=== PATIENT | male | born 1975 | race Caucasian/White ===

== ENCOUNTER 2018-04-08 18:46 | Emergency (ER) | payer BC, OTHER ==
[2018-04-08] MEDS ORDERED: Adacel Vial IM ONE ×2 (19:20→19:43)
--- NOTE | 2018-04-08 19:44 | ERPHSYRPT ---
- History of Present Illness Time Seen by Provider: 04/08/18 19:13 Source: patient Exam Limitations: no limitations Patient Subjective Stated Complaint: Patient states a nail went through his right hand. Patient states pain at 03/08 Triage Nursing Assessment: Wound noted to right wrist and right hand. Patient states pain is a 6/10 Physician History: Pt states, he fell, sustained puncture wounds on his right palm at home, because he fell on a board with nails in it. He denies other injury, or complaints, but he started feeling mid sternal, not radiating chest pain on his way here, lasting few seconds. He denies shortness of breath, nausea, vomiting, diaphoresis, dizziness, other complaints, and it completely resolved. He denies current complaints, besides mild pain in the right hand puncture wounds. He states, his tetanus is not up to date. Occurred: just prior to arrival Method of Injury: fell Quality: constant Severity of Pain-Max: mild Severity of Pain-Current: mild Extremities Pain Location: hand: right Modifying Factors: Improves With: nothing Associated Symptoms: chest pain (resolved) Allergies/Adverse Reactions: No Known Drug Allergies Allergy (Unverified 05/06/15 16:06) Hx Tetanus, Diphtheria Vaccination/Date Given: No Hx Influenza Vaccination/Date Given: No Hx Pneumococcal Vaccination/Date Given: No - Review of Systems Constitutional: No Symptoms Musculoskeletal: Other (puncture wounds ti right palm) All Other Systems: Reviewed and Negative - Past Medical History Pertinent Past Medical History: Yes Neurological History: No Pertinent History ENT History: No Pertinent History Cardiac History: No Pertinent History Respiratory History: No Pertinent History Endocrine Medical History: No Pertinent History Musculoskeletal History: No Pertinent History GI Medical History: No Pertinent History History: No Pertinent History Psycho-Social History: No Pertinent History Male Reproductive Disorders: No Pertinent History - Past Surgical History Past Surgical History: No Neuro Surgical History: No Pertinent History Cardiac: No Pertinent History Respiratory: No Pertinent History Gastrointestinal: No Pertinent History Genitourinary: No Pertinent History Musculoskeletal: No Pertinent History Male Surgical History: No Pertinent History - Social History Smoking Status: Current every day smoker How long have you smoked: 13 Exposure to second hand smoke: Yes Drug Use: none Patient Lives Alone: No - Nursing Vital Signs Nursing Vital Signs: Initial Vital Signs Temperature 99.9 F 04/08/18 18:56 Pulse Rate 84 04/08/18 18:56 Respiratory Rate 18 04/08/18 18:56 Blood Pressure 129/85 04/08/18 18:56 O2 Sat by Pulse Oximetry 96 04/08/18 18:56 Pain Scale Pain Intensity 6 - Physical Exam General Appearance: no apparent distress Eyes, Ears, Nose, Throat Exam: normal ENT inspection Neck Exam: normal inspection, non-tender, supple Cardiovascular/Respiratory Exam: chest non-tender, normal breath sounds, regular rate/rhythm, heart sounds normal, no ecchymosis, no JVD, no respiratory distress Abdominal Exam: non-tender, soft Back Exam: normal inspection, No CVA tenderness Shoulder Exam: normal inspection Hand Exam: laceration (2 punxture wounds: #1 in the base of the palm, just distal from the mid wrist, #2 is on the base of the hypothenar, no bleeding, or large hematoma, no swelling, deformity, good distal capillary refills, no sign of tendon or neurovascular injury.) Neuro/Tendon Exam: normal sensation, normal motor functions Mental Status Exam: alert, oriented x 3, cooperative Skin Exam: normal color, warm, dry SpO2 Interpretation: normal SpO2: 96 Oxygen Delivery: Room Air - Course Nursing assessment & vital signs reviewed: Yes EKG Interpreted by Me: RATE (81/min), NORMAL AXIS, NORMAL INTERVALS, NORMAL ST-T - Radiology Exams Right Hand X-ray Interpretation: Interpreted by me, Negative Chest X-ray Interpretation: Interpreted by me, Negative Ordered Tests: Active Orders 24 hr Category Date Time Status Postal Inspector STAT Care 04/08/18 19:19 Active EKG-ER Only STAT Care 04/08/18 19:18 Active IV Insertion STAT Care 04/08/18 19:18 Active Oxygen-ED Only NASAL CANNULA 2 lpm Care 04/08/18 19:18 Active Wound Care STAT Care 04/08/18 19:20 Active CHEST 1 VIEW (PORTABLE) Stat Exams 04/08/18 19:19 Taken HAND (MINIMUM 3 VIEWS) Stat Exams 04/08/18 19:21 Taken CBC W DIFF Stat Lab 04/08/18 20:00 Completed CK-Creatinine Phosphokinase Stat Lab 04/08/18 20:00 Completed CMP Stat Lab 04/08/18 20:00 Completed CULTURE,URINE Stat Lab 04/08/18 19:50 Received NT PRO BNP Stat Lab 04/08/18 20:00 Completed TROPONIN Q3H Lab 04/08/18 20:00 Completed TROPONIN Q3H Lab 04/08/18 22:30 Ordered UA W/ MICROSCOPIC Stat Lab 04/08/18 19:50 Completed Urine Triage Profile Stat Lab 04/08/18 Completed Medication Summary Discontinued Medications Generic Name Dose Route Start Last Admin Trade Name Freq PRN Reason Stop Dose Admin Diphtheria/Tetanus/Acell Pertussis 0.5 ml 04/08/18 19:20 04/08/18 19:45 Adacel Vial IM 04/08/18 19:21 0.5 ml .ONCE ONE Administration Diphtheria/Tetanus/Acell Pertussis Confirm 04/08/18 19:43 Adacel Vial Administered 04/08/18 19:44 Dose 0.5 ml IM .STK-MED ONE Lab/Rad Data: Laboratory Result Diagrams 04/08/18 20:00 04/08/18 20:00 Laboratory Results 04/08/18 04/08/18 04/08/18 Range/Units Unknown 20:00 20:00 WBC (4.0-10.5) K/mm3 RBC (4.1-5.6) M/mm3 Hgb (12.5-18.0) gm/dl Hct (42-50) % MCV (78-100) fl MCH (26-32) pg MCHC (32-36) g/dl RDW (11.5-14.0) % Plt Count (150-450) K/mm3 MPV (6-9.5) fl Gran % (36.0-66.0) % Eos # (Auto) (0-0.5) Absolute Lymphs (auto) (1.0-4.6) Absolute Monos (auto) (0.0-1.3) Lymphocytes % (24.0-44.0) % Monocytes % (0.0-12.0) % Eosinophils % (0.00-5.0) % Basophils % (0.0-0.4) % Absolute Granulocytes (1.4-6.9) Basophils # (0-0.4) Sodium 141 (137-145) mmol/L Potassium 4.0 (3.5-5.1) mmol/L Chloride 105 (98-107) mmol/L Carbon Dioxide 26 (22-30) mmol/L Anion Gap 14.4 (5-15) MEQ/L BUN 17 (9-20) mg/dL Creatinine 1.03 (0.66-1.25) mg/dL Estimated GFR > 60.0 ML/MIN Glucose 122 H (74-106) mg/dL Calcium 9.9 (8.4-10.2) mg/dL Total Bilirubin 0.40 (0.2-1.3) mg/dL AST 22 (17-59) U/L ALT 24 (0-50) U/L Alkaline Phosphatase 72 (38-126) U/L Creatine Kinase 140 (55-170) U/L Troponin I < 0.012 (0.000-0.034) ng/mL NT-Pro-B Natriuret Pep 35.3 (0-450) pg/mL Serum Total Protein 7.5 (6.3-8.2) g/dL Albumin 4.5 (3.5-5.0) g/dL Ur Collection Type Urine Color (YELLOW) Urine Appearance (CLEAR) Urine pH (5-6) Ur Specific [place] (1.005-1.025) Urine Protein (Negative) Urine Ketones (NEGATIVE) Urine Blood (0-5) Major/ul Urine Nitrite (NEGATIVE) Urine Bilirubin (NEGATIVE) Urine Urobilinogen (0-1) mg/dL Ur Leukocyte Esterase (NEGATIVE) Urine Microscopic RBC (0-2) /HPF Urine Culture Reflexed (NO) Urine Glucose (NEGATIVE) mg/dL Urine Opiates Level NEGATIVE (NEGATIVE) Ur Methadone NEGATIVE (NEGATIVE) Urine Barbiturates NEGATIVE (NEGATIVE) Ur Phencyclidine (PCP) NEGATIVE (NEGATIVE) Urine Amphetamine NEGATIVE (NEGATIVE) U Benzodiazepine Level NEGATIVE (NEGATIVE) Urine Cocaine NEGATIVE (NEGATIVE) Urine Marijuana (THC) NEGATIVE (NEGATIVE) Specimen Received 04/08/18 04/08/18 Range/Units 20:00 19:50 WBC 11.8 H (4.0-10.5) K/mm3 RBC 4.50 (4.1-5.6) M/mm3 Hgb 14.5 (12.5-18.0) gm/dl Hct 42.2 (42-50) % MCV 93.8 (78-100) fl MCH 32.2 H (26-32) pg MCHC 34.4 (32-36) g/dl RDW 12.9 (11.5-14.0) % Plt Count 216 (150-450) K/mm3 MPV 8.8 (6-9.5) fl Gran % 63.9 (36.0-66.0) % Eos # (Auto) 0.38 (0-0.5) Absolute Lymphs (auto) 3.14 (1.0-4.6) Absolute Monos (auto) 0.71 (0.0-1.3) Lymphocytes % 26.6 (24.0-44.0) % Monocytes % 6.0 (0.0-12.0) % Eosinophils % 3.2 (0.00-5.0) % Basophils % 0.3 (0.0-0.4) % Absolute Granulocytes 7.52 H (1.4-6.9) Basophils # 0.04 (0-0.4) Sodium (137-145) mmol/L Potassium (3.5-5.1) mmol/L Chloride (98-107) mmol/L Carbon Dioxide (22-30) mmol/L Anion Gap (5-15) MEQ/L BUN (9-20) mg/dL Creatinine (0.66-1.25) mg/dL Estimated GFR ML/MIN Glucose (74-106) mg/dL Calcium (8.4-10.2) mg/dL Total Bilirubin (0.2-1.3) mg/dL AST (17-59) U/L ALT (0-50) U/L Alkaline Phosphatase (38-126) U/L Creatine Kinase (55-170) U/L Troponin I (0.000-0.034) ng/mL NT-Pro-B Natriuret Pep (0-450) pg/mL Serum Total Protein (6.3-8.2) g/dL Albumin (3.5-5.0) g/dL Ur Collection Type VOID Urine Color YELLOW (YELLOW) Urine Appearance CLEAR (CLEAR) Urine pH 5.0 (5-6) Ur Specific [place] 1.025 (1.005-1.025) Urine Protein NEGATIVE (Negative) Urine Ketones TRACE (NEGATIVE) Urine Blood 50 (0-5) Major/ul Urine Nitrite NEGATIVE (NEGATIVE) Urine Bilirubin NEGATIVE (NEGATIVE) Urine Urobilinogen NORMAL (0-1) mg/dL Ur Leukocyte Esterase NEGATIVE (NEGATIVE) Urine Microscopic RBC 2-5 (0-2) /HPF Urine Culture Reflexed YES (NO) Urine Glucose NEGATIVE (NEGATIVE) mg/dL Urine Opiates Level (NEGATIVE) Ur Methadone (NEGATIVE) Urine Barbiturates (NEGATIVE) Ur Phencyclidine (PCP) (NEGATIVE) Urine Amphetamine (NEGATIVE) U Benzodiazepine Level (NEGATIVE) Urine Cocaine (NEGATIVE) Urine Marijuana (THC) (NEGATIVE) Specimen Received 04/08 2000 - Progress Progress: unchanged Progress Note: 04/08/18 21:15 Pt has been stable, informed about his X rays, and EKG, he did not want to wait for further results, remained pain free, asymptomatic and stable, decided to leave AMA and follow up with his doctor. Counseled pt/family regarding: lab results, diagnosis, need for follow-up, rad results - Departure Time of Disposition: 21:16 Departure Disposition: AMA Clinical Impression: Puncture wound of hand Qualifiers: Encounter type: initial encounter Foreign body presence: without foreign body Laterality: right Qualified Code(s): S61.431A - Puncture wound without foreign body of right hand, initial encounter Chest pain Qualifiers: Chest pain type: unspecified Qualified Code(s): R07.9 - Chest pain, unspecified Condition: Good Critical Care Time: No Referrals: DOCTOR,NO FAMILY [NON-STAFF PHY W/O PRIVILEGES] - Instructions: Wound Care (DC), Chest Pain (DC) Additional Instructions: Follow up with your physician in 2-3 days, return immediately if chest pain, shortness of breath, dizziness, or severe pain in wound, discharge or fever> 101 F!
[2018-04-08 20:06] LABS: BASOPHIL % 0.3 % (0.0-0.4); Basophil (Absolute #) 0.04 (0-0.4); Eosinophil % 3.2 % (0.00-5.0); Eosinophil (Absolute #) 0.38 (0-0.5); Granulocyte Absolute (ANC) 7.52 (1.4-6.9); Granulocytes % 63.9 % (36.0-66.0); Hematocrit 42.2 % (42-50); Hemoglobin 14.5 gm/dl (12.5-18.0); Lymphocyte (Absolute #) 3.14 (1.0-4.6); Lymphocytes % 26.6 % (24.0-44.0); Mean Cell Volume 93.8 fl (78-100); Mean Corpuscular Hemoglobin 32.2 pg (26-32); Mean Corpuscular Hgb Concent. 34.4 g/dl (32-36); Mean Platelet Volume 8.8 fl (6-9.5); Monocyte (Absolute #) 0.71 (0.0-1.3); Platelet Count 216 K/mm3 (150-450); Red Cell Distribution Width 12.9 % (11.5-14.0); White Blood Count 11.8 K/mm3 (4.0-10.5)
[2018-04-08 20:16] LABS: Amphetamine,Urine NEGATIVE (NEGATIVE); Barbiturate,Urine NEGATIVE (NEGATIVE); Benzodiazepine,Urine NEGATIVE (NEGATIVE); Cocaine,Urine NEGATIVE (NEGATIVE); Methadone,Urine NEGATIVE (NEGATIVE); Opiate,Urine NEGATIVE (NEGATIVE); PCP,Urine NEGATIVE (NEGATIVE); THC,Urine NEGATIVE (NEGATIVE)
[2018-04-08 20:22] LABS: Appearance CLEAR (CLEAR); Bilirubin NEGATIVE (NEGATIVE); Blood 50 Ery/ul (0-5); Glucose NEGATIVE (NEGATIVE); Ketones TRACE (NEGATIVE); Leukocyte Esterase NEGATIVE (NEGATIVE); Nitrite NEGATIVE (NEGATIVE); Protein,Urine Dip NEGATIVE (Negative); Specific Gravity 1.025 (1.005-1.025); Urobilinogen NORMAL mg/dL (0-1)
[2018-04-08 20:27] LABS: ALBUMIN 4.5 g/dL (3.5-5.0); ALKALINE PHOSPHATASE 72 U/L (38-126); ANION GAP 14.4 MEQ/L (5-15); BLOOD UREA NITROGEN 17 mg/dL (9-20); CHLORIDE 105 mmol/L (98-107); CK-Creatinine Phosphokinase 140 U/L (55-170); Calcium 9.9 mg/dL (8.4-10.2); Carbon Dioxide 26 mmol/L (22-30); Creatinine 1 1.03 mg/dL (0.66-1.25); Glucose 122 mg/dL (74-106); SGOT/AST 22 U/L (17-59); SGPT/ALT 24 U/L (0-50); SODIUM 141 mmol/L (137-145); Total Protein 7.5 g/dL (6.3-8.2)
[2018-04-08 20:34] VITALS: BP 138/86; PULSE 87
[2018-04-08 20:35] LABS: NT PRO BNP 35.3 pg/mL (0-450)
[2018-04-08 21:18] VITALS: O2SAT 96
--- NOTE | 2018-04-09 09:18 | XRAY ---
Indication: Chest pain. Comparison: May 06, 2015. Portable chest again demonstrates normal heart, lungs, and bony thorax with a few incidental calcified granulomas.
--- NOTE | 2018-04-09 09:19 | XRAY ---
Indication: Puncture wound. Comparison: None 3 views of the right hand demonstrates old distal 5th metacarpal fracture. No other bony, articular, or soft tissue abnormalities.
== END 2018-04-08 21:05 | disposition left against medical advice (07) ==
LOC: ED 18:46
DX: S61.431A Puncture wound without foreign body of right hand, initial encounter (principal); W18.09XA Striking against other object with subsequent fall, initial encounter; Y92.009 Unspecified place in unspecified non-institutional (private) residence as the place of occurrence of the external cause; R07.9 Chest pain, unspecified
CPT/HCPCS: 36000; 36415; 71045; 73130; 80053; 80307; 81000; 82550; 83880; 84484; 85025; 87086; 90471; 90715; 93005; 93041; 99284

== ENCOUNTER 2019-04-26 05:41 | Day surgery (SDC) | payer BC ==
[2019-04-26] MEDS ORDERED: Lactated Ringers 1,000 ML IV SCH (06:00)
[2019-04-26] MEDS ORDERED: DIPRIVAN 200 MG/20 ML IV ONE (07:29)
[2019-04-26 08:51] VITALS: O2SAT 100
[2019-04-26 09:08] VITALS: BP 107/61; PULSE 56
--- NOTE | 2019-04-26 10:49 | OP ---
SURGERY DATE/TIME: 04/26/2019 0730 PREOPERATIVE DIAGNOSIS: Brother of colon cancer. POSTOPERATIVE DIAGNOSIS: Rectal polyp. PROCEDURE: Colonoscopy with cold forceps polypectomy. SURGEON: Dr. Wells. ANESTHESIA: MAC. Medications given by anesthesia department. HISTORY: The patient is a 43 year-old white male patient who presents now for endoscopic evaluation. He reports he had a previous colonoscopy 15 years ago and his brother in his 20's from colon cancer. The patient was felt the need to have endoscopic evaluation. He was appraised of the risks of the procedure including the risk of perforation, phlebitis, untoward reaction to medication, bleeding, and missed lesions. The patient verbalized his understanding and desired to have the procedure performed. DESCRIPTION OF PROCEDURE: The patient was given the medications by the anesthesia department. He had continuous pulse oximetry, ECG monitoring, intermittent blood pressure monitoring and tidal CO2 monitoring during the examination. He was placed in the left lateral decubitus position. A digital rectal examination was performed and revealed normal anal sphincter tone, no masses and normal prostate. The flexible Olympus pediatric colonoscope was used to intubate the rectum. A view of the colon was developed sequentially to the cecum. Upon insertion and withdrawal was noted a polyp in the rectum this was destroyed using cold forceps biopsy with multiple passes with biopsy forceps. The scope was removed from the patient who tolerated the procedure well and was sent back to OP recovery in good condition. The prep was noted to be fair to good.
== END 2019-04-26 09:09 | disposition home or self-care (01) ==
LOC: SDC 05:41
PROVIDERS: ATTEND Family Medicine
DX: Z12.11 Encounter for screening for malignant neoplasm of colon (principal); D12.8 Benign neoplasm of rectum; Z80.0 Family history of malignant neoplasm of digestive organs
CPT/HCPCS: 88305; J2704